=== PATIENT | male | born 1990 | race Caucasian/White ===

== ENCOUNTER 2019-06-17 12:43 | Emergency (ER) | payer MEDICAID, SELFPAY ==
--- NOTE | ~2019-06-17 | XR_ITS ---
EXAMINATION: XR knee RT 2V DATE: 06/17/2019 15:12 INDICATION: Right knee injury and pain. TECHNIQUE: A single view of right knee was obtained. COMPARISON: None. FINDINGS: There is a comminuted fracture of proximal tibia involving the medial and lateral tibial pl ateaus, intercondylar eminence, and tibial metaphysis. The main distal fracture fragment demonstrates near-anatomic alignment on this single view. IMPRESSION: 1. Comminuted fracture of proximal tibia. Reviewed, dictated and finalized at location A. CTOR OF THERAPY SERVICES
[2019-06-17 12:56] VITALS: BP 141/67; PULSE 79; RESP 17; TEMP 37.2; O2SAT 100
--- NOTE | 2019-06-17 14:10 | PC.NURSE ---
Pt yells this RN from across the waiting room while transporting another patient to a room. Pt stops eating his cheeseburger and yells HEY! Am I going to get my pain medicine out here? This RN informed patient that he would not receive any pain medication until he was evaluated by a doctor. Pt states well they tried to take me for an xray but I refused because I am in in excruciating pain. Pt was again educated that he cannot receive any medication while in the waiting room and this RN would check to see about getting him back to a room. Pt still using ice pack from triage.
[2019-06-17] MEDS: IBUPROFEN 600 MG TABLET PO (14:45)
--- NOTE | 2019-06-17 15:03 | ED.GENADULT ---
HPI - General Adult General Chief complaint: Extremity Injury, Lower Stated complaint: R knee injury Time Seen by Provider: 06/17/19 12:45 Source: patient Mode of arrival: ambulatory Limitations: no limitations History of Present Illness HPI narrative: Patient is a 28-year-old male who presents to emergency department for evaluation of right knee injury noting that while he was skateboarding he twisted the knee awkwardly and has since had moderate aching pain of the right knee with swelling with difficulty with bearing weight denies similar occurrence in the past radicular symptoms or paresthesias presents per private vehicle has not taken anything for his symptoms. Related Data Allergies Allergy/AdvReac Type Severity Reaction Status Date / Time No Known Allergies Allergy Verified 08/21/16 07:47 Review of Systems Review of Systems: Narrative: CONSTITUTIONAL: Denies chills, or sweats. SKIN: Positive for swelling of the right knee MUSCULOSKELETAL: Positive for right knee joint pain and swelling NEUROLOGIC: Denies numbness or tingling PMFSH Social History Social History (Updated 06/17/19 @ 15:04 by Juvenal Cabrera PA-C) Smoking status: Current every day smoker Gender identity (if verbalized by the patient): Male Exam Narrative: Exam Narrative: GENERAL: Well-appearing, well-nourished, and in no acute distress. HEAD: Normocephalic, atraumatic. EYES: PERRLA and EOMI. ENT: Nares clear, no rhinorrhea or epistaxis. Mucous membranes moist. EXTREMITIES: Right knee joint effusion with tenderness anteriorly SKIN: Warm, dry, no rash. NEURO: No focal deficits. Alert and oriented x3. Cranial nerves II through XII grossly intact. Neurovascularly intact PSYCH: Normal mood and affect. Course Course Emergency Course: Patient in the room in no distress aware of case findings treatment plan and diagnosis Consultations Consultation #1: Patient case discussed in entirety with orthopedic surgery who agrees the patient should stay for further evaluation and recommends that the patient sign AGAINST MEDICAL ADVICE if he is refusing area of his injury at this time Date: 06/17/19 Vital Signs Vital signs: Vital Signs Temperature 99 F 06/17/19 12:56 Pulse Rate 79 06/17/19 12:56 Respiratory Rate 17 06/17/19 12:56 Blood Pressure 141/67 H 06/17/19 12:56 Pulse Oximetry 100 06/17/19 12:56 Temperature 99 F 06/17/19 12:56 Pulse Rate 79 06/17/19 12:56 Respiratory Rate 17 06/17/19 12:56 Blood Pressure 141/67 H 06/17/19 12:56 Pulse Oximetry 100 06/17/19 12:56 Medical Decision Making MDM Narrative Medical decision making narrative: Patient in the room at this time was offered IV with analgesic but is refusing patient notes that he does not want an IV or more pain medication and is refusing any further imaging to include x-ray or CT. patient was made aware of the risks of not dealing with his tibia fracture was advised to stay to ensure that he gets proper care but is refusing and knowing that he wants to go home and talk to his mother and is refusing any further interventions at this time. Patient notes that he will return. Patient signed AMA documentation prior to leaving. Patient aware of discussion with orthopedic surgery prior to his discharge Vital Signs Vital Signs: Vital Signs Temperature 99 F 06/17/19 12:56 Pulse Rate 79 06/17/19 12:56 Respiratory Rate 17 06/17/19 12:56 Blood Pressure 141/67 H 06/17/19 12:56 Pulse Oximetry 100 06/17/19 12:56 Temperature 99 F 06/17/19 12:56 Pulse Rate 79 06/17/19 12:56 Respiratory Rate 17 06/17/19 12:56 Blood Pressure 141/67 H 06/17/19 12:56 Pulse Oximetry 100 06/17/19 12:56 Imaging Data Radiologist's impression: ITS Impressions Knee X-Ray 06/17/19 15:19 IMPRESSION: 1. Comminuted fracture of proximal tibia. Discharge Plan Discharge Clinical Impression: Acute internal derangement of knee, Closed tibia frac
--- NOTE | 2019-06-17 15:09 | PC.NURSE ---
Pt was on his phone, using the speaker phone function, talking about his car. After the phone call I was applying an TANGELA wrap to pt's right knee and pt repeatedly stated, Sir, sir, you can't do that! You can't touch the leg! I proceeded to apply the knee immobilizer to pt's right knee for which the pt would barely tolerate. 1511: offshore wind turbine technician came to complete the other views for the right knee xrays and pt stated, No more xrays! I just want to go home! It was explained to pt repeatedly that all 3 xray views are required for a better diagnosis but pt yelled, I don't want anymore xrays! Pt would not listen to any of the risks or benefits for more xrays. Agatha Al, told of situation.
[2019-06-17 16:30] VITALS: BP 117/77; PULSE 75; RESP 20; O2SAT 98
== END 2019-06-17 16:30 | disposition left against medical advice (07) ==
PROVIDERS: Emergency Provider Emergency Medicine
DX: S82.121A Displaced fracture of lateral condyle of right tibia, initial encounter for closed fracture (principal); S82.131A Displaced fracture of medial condyle of right tibia, initial encounter for closed fracture; S83.206A Unspecified tear of unspecified meniscus, current injury, right knee, initial encounter; F17.200 Nicotine dependence, unspecified, uncomplicated; X50.9XXA Other and unspecified overexertion or strenuous movements or postures, initial encounter; Y93.51 Activity, roller skating (inline) and skateboarding
CPT/HCPCS: 73560; 99284; A9270

== ENCOUNTER 2019-06-18 15:07 | Emergency (ER) | payer MEDICAID, SELFPAY ==
--- NOTE | ~2019-06-18 | CT_ITS ---
EXAMINATION: CT knee RT wo con EXAM DATE: 06/18/2019 15:53 INDICATION: Tibial plateau fracture, skateboard injury. TECHNIQUE: Spiral CT knee RT wo con was performed right knee Axial, coronal and sagittal images were reviewed. The dose-length product (DLP) for this examination was 458.19 mGy-cm. The exposure was t ailored according to patient size (auto mA exposure control), and iterative reconstruction (ASIR) was used as additional dose reduction technique. Correlation is made to x-ray same date. FINDINGS: Acute comminuted right knee medial tibial plateau fracture extending to the metaphysis with about 7 mm posterior displacement. Anterior aspect of the tibial plateau and the intercondylar emine nce also has comminuted comminuted fractures, but there is no subluxation of the tibia with respect t o the femur. There is also a fracture line extending through the lateral tibial plateau without displ acement. Closed, post medical finding. The femur, patella, fibula are intact. Only small joint effusi on/hemarthrosis. IMPRESSION: Acute comminuted right tibial plateau fractures. Reviewed, dictated and finalized at location A. IMS ADVOCATE CLERK/SPECIALIST
[2019-06-18 15:24] VITALS: BP 96/71; PULSE 78; RESP 18; TEMP 37.6; O2SAT 100
--- NOTE | 2019-06-18 15:25 | ED.LOWEXIN ---
HPI - Extremity Injury (Lower) General Chief Complaint: Extremity Injury, Lower Stated Complaint: need more information on my knee Time Seen by Provider: 06/18/19 15:21 Source: patient and RN notes reviewed Mode of arrival: ambulatory Limitations: no limitations History of Present Illness HPI Narrative: Pt is a 28 y/o male who presents to the ED with c/o rt knee injury happening yesterday. He notes that he was skateboarding yesterday afternoon when his rt foot planted into the ground and his forward momentum caused his rt knee to crack. Pt states that he has had severe pain in his rt knee ever since the injury. He notes that he was evaluated in the [facility] ED yesterday evening for his pain, but states that he left before he could complete his X-rays due to an insurance issue. Pt notes that he didn't strike his head during the incident, and currently denies any neck pain or back pain. He states that his pain is aggravated with weight bearing and bending his rt knee. Pt currently rates his pain at 7/10. complaint: knee injury Onset (ago): day(s) (1) Injury: Right: knee Place: street/outdoors Severity scale (1-10): 7 Exacerbating factors: weight bearing and movement (bending rt knee) Context: other (skateboarding) Associated symptoms: snap/pop sensation ( crack ) Other symptoms: none Related Data Allergies Allergy/AdvReac Type Severity Reaction Status Date / Time No Known Allergies Allergy Verified 08/21/16 07:47 Review of Systems Review of Systems: All systems reviewed & are unremarkable except as noted in HPI and below Constitutional: Constitutional: Denies chills, Denies fever(s), Denies headache(s) and Denies weakness Musculoskeletal: Musculoskeletal: Denies back pain, Reports arthralgias (rt knee pain) and Denies neck pain Neurologic: Denies headache(s), Denies weakness and Denies other (head injury) [facility] Past Medical History Medical History (Updated 06/18/19 @ 18:06 by Katlyn Johnson MD) Upper respiratory infection Surgical History Surgical History No significant past surgical history Social History Social History Smoking status: Current every day smoker Gender identity (if verbalized by the patient): Male Exam Const: General: no acute distress and well developed Orientation/consciousness: oriented to person, oriented to place, oriented to time and patient oriented x3 HENMT: Head: normocephalic Neck: Neck: normal visual inspection and full ROM Chest: Chest palpation & inspection: normal inspection of the chest and no tenderness Resp: Effort & Inspection: normal respiratory effort Auscultation: clear to auscultation bilaterally Cardio: Rate: regular rate Rhythm: regular rhythm GI: GI Palp: No abdominal tenderness and Yes Soft to palpation Skin: General skin exam: normal color and turgor normal Neuro: General: oriented to person, oriented to place, oriented to time and patient oriented x3 Cognition (Neuro): normal cognition Extrem: General: no pedal edema Right lower extremity: knee Details: tenderness Psych: Appearance: grossly normal Mental Status: mental status grossly normal Affect: normal affect Course Consultations Consultation #1: Discussed case with orthopedic surgeon, Dr. Recinos. Recommends transferring the pt. Date: 06/18/19 Time: 16:49 Consultation #2: Discussed with Dr. Romero (ortho) at [facility], who agrees to evaluate the patient in ED. Discussed with Dr. Bertrand (EDP), who agrees to accept the patient for transfer. Date: 06/18/19 Time: 18:02 Vital Signs Vital signs: Vital Signs Temperature 37.6 C 06/18/19 15:24 Pulse Rate 78 06/18/19 15:24 Respiratory Rate 18 06/18/19 15:24 Blood Pressure 96/71 L 06/18/19 15:24 Pulse Oximetry 100 06/18/19 15:24 Temperature 37.6 C 06/18/19 15:24 Pulse Rate 65 06/18/19 18:42 Respiratory Rate 15 06/18/19
--- NOTE | 2019-06-18 15:45 | PC.NURSE ---
Pt taken to CT scan
--- NOTE | 2019-06-18 18:34 | PC.NURSE ---
Pt was advised to go to [facility] via ambulance but declined. Pt was also advised not to eat or drink anything and go straight to ED
[2019-06-18 18:42] VITALS: BP 112/65; PULSE 65; RESP 15; O2SAT 100
== END 2019-06-18 18:44 | disposition short-term general hospital (02) ==
PROVIDERS: Emergency Provider Emergency Medicine
DX: S82.141A Displaced bicondylar fracture of right tibia, initial encounter for closed fracture (principal); X50.9XXA Other and unspecified overexertion or strenuous movements or postures, initial encounter; Y93.51 Activity, roller skating (inline) and skateboarding
CPT/HCPCS: 73700; 96374; 99284; J3010

== ENCOUNTER 2019-11-24 12:30 | Outpatient (RCR) | payer BC, MEDICAID, SELFPAY ==
--- NOTE | 2019-10-07 11:59 | PTOPEVAL ---
PHYSICAL THERAPY EVALUATION AND PLAN OF CARE 10-07-2019 The PT evaluation was completed and the plan of treatment is scheduled for 2x/week for 3 weeks. Thank you for referring Jarrett Rios to [facility]. Please review, sign, date and return this plan of care ALEX. I agree with and certify that the following plan of care is medically necessary. Referring Physician Date Attending Provider: Dr. Rainey *PT Outpatient Evaluation Start: 10/07/19 11:10 Document 10/07/19 11:10 EMILY (Rec: 10/07/19 11:59 EMILY [id number]) Outpatient Past Medical History Past Medical History Source of Past Medical History Patient Neurological History Hx Neurological Disorders No Significant History Cardiovascular History Hx Cardiac Disorders No Significant History Respiratory History Hx Respiratory Disorders No Significant History Gastrointestinal History Hx Gastrointestinal Disorders No Significant History Genitourinary History Hx Genitourinary Disorders No Significant History Musculoskeletal History Hx Musculoskeletal Disorders No Significant History Hematological History Hx Hematological Disorders No Significant History Endocrine History Hx Endocrine Disorders No Significant History HEENT History Hx HEENT Disorders No Significant History Integumentary History Hx Skin Disorders No Significant History Reproductive History Hx Reproductive Disorders No Significant History Evaluation Information Problem Diagnosis R tibial plateau fracture with ORIF Onset July 06, 2019 Subjective Information had skate board accident; Query Text:As Reported By Patient/ using crutches; have not been Family doing any exercises at home; Previous Treatments Previous Treatments For This Problem no PT since home from hospital Prior Level of Function Activity Level (Last 3 Months) Occupation not working at this time; 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
--- NOTE | 2019-10-18 15:36 | PCPTNOTE ---
Pt No showed on 10/18/2019, Pt was called on 10/14/2019 to confirm appointment for today.
--- NOTE | 2019-10-27 15:19 | PTOPEVAL ---
PHYSICAL THERAPY REEVALUATION AND UPDATED PLAN OF CARE 10-27-2019 Jarrett has received 6 PT sessions, from October 06 to today, s/p R tibial fracture with ORIF. He did not show for one appointment. Compared to the initial eval: pain has decreased; ROM of knee has increased; is walking without an assistive device, but limps due to lack of full knee extension and difficulty descending stairs due to decreased eccentric quad control. He has been issued and educated on his home exercises, but reports not been doing, been playing video games and staying in the house due to coronavirus; emphasized to him that he must do extension stretching 3-4 times a day to achieve 0'. He voiced understanding and stated he would do stretching. Continue PT 2x/week for 2 weeks, to increase knee extension to 0' and strengthen end range of knee extension. Thank you for referring Jarrett to [facility]. Please review, sign, date and return this plan of care ALEX. I agree with and certify that the following plan of care is medically necessary. Referring Physician Date Attending Provider: Dr. Carlos Alberto Rainey Document 10/27/19 14:30 EMILY (Rec: 10/27/19 15:18 EMILY [id number]) Re-evaluation Subjective Information Jarrett reports: have not used Query Text:As Reported By Patient/ crutches for past 2 days; have Family not been doing exercises, just going up/down stairs and social distancing, playing video games; not helping mom with home chores; Pain Assessment Timing of Pain Assessment Timing of Pain Assessment Assessment Self Report Self Report Pain Level 0 Pain Score Pain Score 0: Self Report Additional Pain Score Comments use ice for swelling in knee, but not really have any pain; but reports pain with knee extension stretching- did not give # rating; Lower Extremity Range of Motion General Lower Extremity Range of Motion Gross Lower Extremity Range of Motion R knee active (-5') and with Comments prone stretch 0'/ knee flex 135'; stretching knee extension in prone, heel on wall, heel on chair; pt reported increased pain and would not allow stretch to full extension of knee; reinforced to him to perform home exercises and stretching 3-4 x/day, stated hurts to much, need to be knocked out for chiropractor to pop it back straight Lower Extremity Muscle Strength Testing General Lower Extremity Strength Gross Lower Extremity Strength standing: R LE exercises with
--- NOTE | 2019-11-10 16:15 | PCPTNOTE ---
new orders received, dated today's date--pt brought into today's appt: continue PT: ITB stretching, strengthening and ROM of R knee ;
--- NOTE | 2019-11-10 16:17 | PTOPEVAL ---
PHYSICAL THERAPY RE-EVALUATION AND UPDATED PLAN OF CARE 11-10-2019 Jarrett has received a total of 9 PT sessions, from October 06 to today, s/p R tibial plateau fracture with ORIF. Compared to the last reevaluation on 10-27-19: pain rating is about the same; strength of R LE with leg press has increased; activity level has increased. He continues to lack extension of knee and is having pain with WB and clicking sound with pain that is disturbing him. With palpation, he does not have any painful area, but has pain with knee flexion and extension at ~ 45'. PT is to continue 2x/week for 2 weeks, to increase active knee extension and progress strengthening as tolerated. Thank you for referring Jarrett to [facility]. Please review, sign, date and return this updated plan of care [facility]. I agree with and certify that the following plan of care is medically necessary. Referring Physician Date Admitting Provider: Dr. Carlos Alberto Rainey *PT Outpatient Re-Evaluation Document 11/10/19 13:44 EMILY (Rec: 11/10/19 14:24 EMILY [id number]) Subjective Information Jarrett reports: saw today and Query Text:As Reported By Patient/ said to continue PT- have new Family order, left it at home; doing exercises at home; Pain Assessment Timing of Pain Assessment Timing of Pain Assessment Assessment Pain Scale Pain Scale Used Numeric (1 - 10) Self Report Pain Assessment Right Leg(s) Reported Pain Level 1 Pain Description Soreness Pain Frequency Acute Other Pain Description clicking in knee when move it Lowest Pain Intensity 0 Greatest Pain Intensity 1 Pain Aggravating Factors Exercise/Activity,Walking Pain Relief Interventions Used By Ice,Inactivity/Rest Patient Additional Pain Comments not taking nick pain meds; smokes marijuania Pain Score Pain Score 1: Self Report Lower Extremity Range of Motion General Lower Extremity Range of Motion Gross Lower Extremity Range of Motion R knee extension (-3') with Comments passive stretch 0'' / flexion 130'; ITB stretch with arm extended, leaning against wall and side lying on L side;--ISSUED HEP for these ITB stretches; Lower Extremity Muscle Strength Testing General Lower Extremity Strength Gross Lower Extremity Strength B UE lift floor/waist: 50# with good posture; single leg standing R 35 sec with good stability; R LE exercises 3# ankle wt: supine SLR and side lying hip abduction; leg press R only 80# / L only
--- NOTE | 2019-11-19 13:49 | PCPTNOTE ---
pt did not show for today's treatment appointment.
--- NOTE | 2019-11-26 14:51 | PCPTNOTE ---
pt did not show for today's reevaluation appt;
--- NOTE | 2019-12-10 16:21 | PCPTNOTE ---
PHYSICAL THERAPY DISCHARGE 12-10-2019 Attending Provider: Dr. Carlos Alberto Rainey Patient:Jarrett Rios Date of :1990 Jarrett has not returned for any further treatments since 11/24/2019, therefore he will be discharged at this time. He received a total of 11 PT sessions, from October 06 to November 23, for the diagnosis of s/p R tibial fracture. The goals were not assessed. Thank you for referring Mr. Rios to [facility]. Please review, sign, date and return this discharge summary ALEX. I have been updated about the patient's current status and I agree with discharge from the above service at this time. Referring Physician Date
== END 2019-12-14 10:33 | disposition home or self-care (01) ==
LOC: ANHPT 12:30
DX: S82.151D Displaced fracture of right tibial tuberosity, subsequent encounter for closed fracture with routine healing (principal); S82.141D Displaced bicondylar fracture of right tibia, subsequent encounter for closed fracture with routine healing
CPT/HCPCS: 97110; 97140; 97161

== ENCOUNTER 2022-04-07 13:57 | Emergency (ER) | payer BC, SELFPAY ==
--- NOTE | 2022-04-07 14:00 | PC.NURSE ---
patient states the wait would be too long and left from intake desk prior to triage
== END 2022-04-07 14:00 | disposition left against medical advice (07) ==
LOC: ANHED 15:18
DX: Z53.21 Procedure and treatment not carried out due to patient leaving prior to being seen by health care provider (principal)
CPT/HCPCS: 99199